=== PATIENT | female | born 1975 | race African-American/Black ===

== ENCOUNTER 2016-09-13 09:37 | Emergency (ER) | payer MEDICARE, OTHER ==
[2016-09-13] MEDS ORDERED: PROPARACAINE 0.5% OPHTH DROPS 15 ML BTL BOTH EYES STA (09:40)
[2016-09-13 09:50] VITALS: TEMP 97.8
--- NOTE | 2016-09-13 10:47 | ED ---
Eye Problem HPI - General Chief complaint: Eye Problems Stated complaint: Can't see Time Seen by Provider: 09/13/16 09:37 Source: patient, EMS Mode of arrival: EMS - History of Present Illness Initial comments: This is a 41-year-old female who states she was looking out a window when she suddenly became aware that she had blurry vision and watering of her eyes and some eye pain and burning. She is not believe she has any new environmental things in her house so she is does states she [place]. She was brought in by EMS due to the sudden onset. She denies any headache fevers chills nausea vomiting sweats or other symptoms no focal deficits was upper or lower extremities. MD chief complaint: eye pain, eye redness, vision change Onset Description: sudden - Related Data Home Medications Medication Instructions Recorded Confirmed Famotidine [Pepcid] 20 mg PO DAILY 03/28/16 09/13/16 Aspirin 650 mg PO Q6H PRN 09/13/16 09/13/16 Fexofenadine HCl 180 mg PO DAILY 09/13/16 09/13/16 Loratadine [Claritin] 10 mg PO DAILY 09/13/16 09/13/16 Sertraline [Zoloft] 100 mg PO DAILY 09/13/16 09/13/16 Previous Rx's Medication Instructions Recorded Divalproex ER [Depakote ER] 1,000 mg PO HS #60 tab 12/18/13 Allergies Allergy/AdvReac Type Severity Reaction Status Date / Time corn Allergy Unknown Verified 09/13/16 10:05 hydromorphone HCl Allergy Unknown Verified 09/13/16 10:05 [From Dilaudid] milk Allergy Unknown Verified 09/13/16 10:05 Penicillins Allergy Rash/Hives Verified 09/13/16 10:05 wheat Allergy Unknown Verified 09/13/16 10:05 Review of Systems ROS Statement: Those systems with pertinent positive or pertinent negative responses have been documented in the HPI. ROS Other: All systems not noted in ROS Statement are negative. Past Medical History Past Medical History: Seizure Disorder Additional Past Medical History / Comment(s): Body tremors History of Any Multi-Drug Resistant Organisms: MRSA Date of last positivie culture/infection: 02/24/2014 MDRO Source:: abdomen Past Surgical History: Tonsillectomy Additional Past Surgical History / Comment(s): Foot surgery, carpel tunnel, wound debridement Past Psychological History: Anxiety, Bipolar Smoking Status: Former smoker Past Alcohol Use History: None Reported Past Drug Use History: None Reported General Exam - General Exam Comments Initial Comments: This is a well-developed well-nourished awake alert oriented history female she is very anxious she does demonstrate watering of her eyes. General appearance: alert, anxious, in distress Head exam: Present: atraumatic, normocephalic, normal inspection Eye exam: Present: PERRL, EOMI, conjunctival injection. Absent: scleral icterus , nystagmus, periorbital swelling, periorbital tenderness ENT exam: Present: normal exam, mucous membranes moist Neck exam: Present: normal inspection. Absent: tenderness, meningismus, lymphadenopathy Respiratory exam: Present: normal lung sounds bilaterally. Absent: respiratory distress, wheezes, rales, rhonchi, stridor Cardiovascular Exam: Present: regular rate, normal rhythm, normal heart sounds. Absent: systolic murmur, diastolic murmur, rubs, gallop, clicks Neurological exam: Present: alert, oriented X3, CN II-XII intact. Absent: motor sensory deficit Psychiatric exam: Present: anxious Skin exam: Present: warm, dry, intact, normal color. Absent: rash Course Vital Signs 09/13/16 09/13/16 09:42 11:20 Temperature 97.8 F Pulse Rate 83 68 Respiratory 14 16 Rate Blood Pressure 169/80 143/84 O2 Sat by Pulse 100 96 Oximetry - Reevaluation(s) Reevaluation #1: 09/13/16 12:50 Patient is started get relief after the Pred Forte was instilled. She did have tonometry done at the right eye was 17 left eye was 19. Reevaluation #2: 09/13/16 12:50 Reevaluation revealed continuation of clear corneas no cloudiness of the glans she still has some light sensitivity. He presentation appears be consistent with iritis Procedures - Procedures Initial comment: I did anesthetize he has using proparacaine drops and did instill fluorescein. Examinationreveals no increased uptake except for perhaps some around the conjunctiva. Eversion of the eyelid showed no evidence of any foreign body no evidence of any abrasions or foreign bodies. Medical Decision Making - Medical Decision Making I did discuss the findings with the patient the presentation is most consistent at this time with iritis. Patient has no visual field defects just blurry vision from the tearing. Bright light does still cause some problem. She does states she had a problem with this in the past. She'll be placed on Pred Forte today and home atropine drops. She was to be referred to Dr. Blankenship but is similar to go to her own fueler. She is encouraged to follow-up today. She is return if any problems. Disposition Clinical Impression: Iritis of both eyes Disposition: HOME SELF-CARE Condition: Good Instructions: Iritis (ED) Additional Instructions: Use the Pred Forte 1 drop 4 times a day 3-5 days and using home atropine 5% drops 1 drop 4 times a day 3-5 days Referrals: Chacorta Summers MD [Primary Care Provider] - 1-2 days Papa Guerrero MD [STAFF PHYSICIAN] - 1-2 days
[2016-09-13 11:21] VITALS: RESP 16
[2016-09-13] MEDS ORDERED: prednisoLONE ACETATE 1% OPHTH DROPS 1 ML BTL BOTH EYES STA (11:57)
[2016-09-13] MEDS ORDERED: KETOROLAC 0.5% OPHTH DROPS 3 ML BTL BOTH EYES SCH (13:00)
[2016-09-13 13:16] VITALS: BP 140/81; PULSE 87
== END 2016-09-13 13:15 | disposition home or self-care (01) ==
LOC: EC 09:37
DX: H20.9 Unspecified iridocyclitis (principal); F41.9 Anxiety disorder, unspecified; Z79.82 Long term (current) use of aspirin; Z79.899 Other long term (current) drug therapy; Z91.011 Allergy to milk products; Z88.0 Allergy status to penicillin; Z91.018 Allergy to other foods; Z88.5 Allergy status to narcotic agent; Z87.891 Personal history of nicotine dependence
CPT/HCPCS: 99283

== ENCOUNTER 2017-03-17 17:53 | Emergency (ER) | payer MEDICARE, OTHER ==
[2017-03-17 18:02] VITALS: BP 128/90; PULSE 100; RESP 18; TEMP 99.6
--- NOTE | 2017-03-17 18:25 | ED ---
Extremity Problem HPI - General Chief complaint: Extremity Problem,Nontraumatic Stated complaint: loss of feeling in left arm Time Seen by Provider: 03/17/17 18:05 Source: patient Mode of arrival: ambulatory Limitations: no limitations - History of Present Illness Initial comments: 41-year-old female patient presents to emergency department today for complaints of left arm pain and paresthesia. Patient states that this started yesterday when her hand cramped area patient states that the pain is mostly in her palm, but also does radiate from her elbow down to her third and fourth fingers. 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 Patient states that she frequently uses her hands in her work. Patient has diagnosed with carpal tunnel in the past, and states that this feels similar. Patient states that she is unable to grasp things with the hand, bend her wrist, or straighten her arm due to the pain. Patient denies any injury to the extremity. Patient denies any headache, dizziness, weakness, chest pain, redness of breath. She she did try to take some Excedrin without relief. Patient also tried ice which did not help either. - Related Data Home Medications Medication Instructions Recorded Confirmed Famotidine [Pepcid] 20 mg PO DAILY 03/28/16 09/13/16 Aspirin 650 mg PO Q6H PRN 09/13/16 09/13/16 Fexofenadine HCl 180 mg PO DAILY 09/13/16 09/13/16 Loratadine [Claritin] 10 mg PO DAILY 09/13/16 09/13/16 Sertraline [Zoloft] 100 mg PO DAILY 09/13/16 09/13/16 Previous Rx's Medication Instructions Recorded Divalproex ER [Depakote ER] 1,000 mg PO HS #60 tab 12/18/13 Ibuprofen [Motrin] 600 mg PO Q6HR PRN #20 tab 03/17/17 Allergies Allergy/AdvReac Type Severity Reaction Status Date / Time corn Allergy Unknown Verified 03/17/17 18:19 hydromorphone HCl Allergy Unknown Verified 03/17/17 18:19 [From Dilaudid] milk Allergy Unknown Verified 03/17/17 18:19 Penicillins Allergy Rash/Hives Verified 03/17/17 18:19 wheat Allergy Unknown Verified 03/17/17 18:19 Review of Systems ROS Statement: Those systems with pertinent positive or pertinent negative responses have been documented in the HPI. ROS Other: All systems not noted in ROS Statement are negative. Past Medical History Past Medical History: Seizure Disorder Additional Past Medical History / Comment(s): Body tremors History of Any Multi-Drug Resistant Organisms: MRSA Date of last positivie culture/infection: 02/24/2014 MDRO Source:: abdomen Past Surgical History: Tonsillectomy Additional Past Surgical History / Comment(s): Foot surgery, carpel tunnel, wound debridement Past Psychological History: Anxiety, Bipolar Smoking Status: Current some day smoker Past Alcohol Use History: None Reported Past Drug Use History: None Reported General Exam Limitations: no limitations General appearance: alert, in no apparent distress Eye exam: Present: normal appearance, PERRL, EOMI. Absent: scleral icterus, conjunctival injection, periorbital swelling ENT exam: Present: normal exam, mucous membranes moist Neck exam: Present: normal inspection. Absent: tenderness, meningismus, lymphadenopathy Respiratory exam: Present: normal lung sounds bilaterally. Absent: respiratory distress, wheezes, rales, rhonchi, stridor Cardiovascular Exam: Present: regular rate, normal rhythm, normal heart sounds. Absent: systolic murmur, diastolic murmur, rubs, gallop, clicks Extremities exam: Present: normal inspection, full ROM, tenderness (To the palmar aspect of the left hand), other (Mild swelling noted to the palmar aspect of the left hand) Neurological exam: Present: alert, oriented X3, CN II-XII intact Psychiatric exam: Present: normal affect, normal mood Skin exam: Present: warm, dry, intact, normal color. Absent: rash Course Vital Signs 03/17/17 17:58 Temperature 99.6 F Pulse Rate 100 Respiratory 18 Rate Blood Pressure 128/90 O2 Sat by Pulse 97 Oximetry Medical Decision Making - Medical Decision Making Detail cannot patient presented to emergency department today for evaluation of pain and paresthesia to the left hand and wrist. The stent with carpal tunnel which patient has been diagnosed within the past. Given that there was no injury to the extremity and patient has had similar symptoms in the past with the carpal tunnel she will be discharged home with a prescription for anti- inflammatory ibuprofen as well as a cock-up splint prescription. Patient has been instructed to follow up with orthopedics for reevaluation of the wrist. Also instructed to follow-up with her primary care physician if she can get into orthopedics right away. Patient instructed to return for any new, worsening, or concerning symptoms. Patient verbalizes understanding and agrees with this plan. Disposition Clinical Impression: Arm pain, Carpal tunnel syndrome of left wrist Disposition: HOME SELF-CARE Condition: Good Instructions: Paresthesia (ED), Arthralgia (ED) Additional Instructions: Use Motrin for pain and inflammation. Use Js wrap until you can get a brace. Follow-up with orthopedic surgeon for recheck. Follow-up with primary care physician one to 2 days for recheck. Return for any new, worsening, or concerning symptoms. Prescriptions: Ibuprofen [Motrin] 600 mg PO Q6HR PRN #20 tab PRN Reason: Pain Referrals: Chacorta Summers MD [Primary Care Provider] - 1-2 days Hector Miller PAC [PHYSICIAN INGREDIENT HANDLER] - 1-2 days Time of Disposition: 18:24
== END 2017-03-17 18:39 | disposition home or self-care (01) ==
LOC: EC 17:53
DX: G56.02 Carpal tunnel syndrome, left upper limb (principal); F31.9 Bipolar disorder, unspecified; F41.9 Anxiety disorder, unspecified; F17.200 Nicotine dependence, unspecified, uncomplicated; Z88.0 Allergy status to penicillin; Z88.5 Allergy status to narcotic agent; Z91.011 Allergy to milk products; Z91.018 Allergy to other foods; Z79.899 Other long term (current) drug therapy
CPT/HCPCS: 29125; 99283

== ENCOUNTER 2017-10-13 06:28 | Emergency (ER) | payer MEDICARE, OTHER ==
[2017-10-13 06:42] VITALS: RESP 18
[2017-10-13] MEDS ORDERED: MECLIZINE 12.5 MG TAB PO STA (07:44)
[2017-10-13] MEDS ORDERED: SODIUM CHLORIDE 0.9% 1,000 ML IV STA ×2 (07:44)
[2017-10-13] MEDS ORDERED: ONDANSETRON 4 MG/2 ML VIAL IVP STA (07:44)
--- NOTE | 2017-10-13 07:48 | ED ---
General Adult HPI - General Chief complaint: Nausea/Vomiting/Diarrhea Stated complaint: Nausea Time Seen by Provider: 10/13/17 07:22 Source: patient, RN notes reviewed Mode of arrival: wheelchair Limitations: no limitations - History of Present Illness Initial comments: This is a 42-year-old female who presents with complaints of the onset of some nausea and generalized wooziness and dizziness after eating. He last evening. She states she has not vomited but feels she would feel better if she did. She complains of dizziness distress with certain movements of her eyes and he had she does have a history of vertigo in the past she also states her legs are tingling she also has multiple other complaints of left leg popping feeling in her and her eyes. She denies any focal weakness to her upper or lower extremities. She does have nausea no vomiting no abdominal pain no overt chest pain. No palpitations. - Related Data Home Medications Medication Instructions Recorded Confirmed Sertraline [Zoloft] 100 mg PO DAILY 09/13/16 06/15/17 lamoTRIgine [LaMICtal] 25 mg PO DAILY 03/17/17 06/15/17 Allergies Allergy/AdvReac Type Severity Reaction Status Date / Time corn Allergy Unknown Verified 10/13/17 06:42 hydromorphone HCl Allergy Unknown Verified 10/13/17 06:42 [From Dilaudid] milk Allergy Unknown Verified 10/13/17 06:42 Penicillins Allergy Rash/Hives Verified 10/13/17 06:42 wheat Allergy Unknown Verified 10/13/17 06:42 Review of Systems ROS Statement: Those systems with pertinent positive or pertinent negative responses have been documented in the HPI. ROS Other: All systems not noted in ROS Statement are negative. Past Medical History Past Medical History: Seizure Disorder Additional Past Medical History / Comment(s): Body tremors, hypogylcemia, History of Any Multi-Drug Resistant Organisms: MRSA Date of last positivie culture/infection: 02/24/2014 MDRO Source:: abdomen Past Surgical History: Tonsillectomy Additional Past Surgical History / Comment(s): Foot surgery, carpel tunnel, wound debridement, Past Psychological History: Anxiety, Bipolar Smoking Status: Current some day smoker Past Alcohol Use History: None Reported Past Drug Use History: None Reported General Exam - General Exam Comments Initial Comments: This is a well-developed well-nourished awake alert oriented 3 female Limitations: no limitations General appearance: alert, anxious Head exam: Present: atraumatic, normocephalic, normal inspection Eye exam: Present: normal appearance, PERRL, EOMI. Absent: scleral icterus, conjunctival injection, periorbital swelling ENT exam: Present: mucous membranes dry Neck exam: Present: normal inspection, full ROM. Absent: tenderness, meningismus, lymphadenopathy Respiratory exam: Present: normal lung sounds bilaterally. Absent: respiratory distress, wheezes, rales, rhonchi, stridor, chest wall tenderness Cardiovascular Exam: Present: regular rate, normal rhythm, normal heart sounds. Absent: systolic murmur, diastolic murmur, rubs, gallop, clicks GI/Abdominal exam: Present: soft, normal bowel sounds. Absent: distended, tenderness, guarding, rebound, rigid Extremities exam: Present: normal inspection, full ROM, normal capillary refill. Absent: tenderness, pedal edema, joint swelling, calf tenderness Back exam: Present: normal inspection Neurological exam: Present: alert, oriented X3, CN II-XII intact Psychiatric exam: Present: normal affect, normal mood Skin exam: Present: warm, dry, intact, normal color. Absent: rash Course Vital Signs 10/13/17 06:38 Temperature 97.4 F L Pulse Rate 74 Respiratory 18 Rate Blood Pressure 122/77 O2 Sat by Pulse 99 Oximetry Medical Decision Making - Medical Decision Making The patient is feeling much improved this time she will be discharged the presentation is consistent with a acute gastritis likely secondary to the medial sheet discussed ingesting. - Lab Data Result diagrams: 10/13/17 08:05 10/13/17 08:05 Lab Results 10/13/17 10/13/17 10/13/17 Range/Units 08:05 08:05 08:05 WBC 9.1 (3.8-10.6) k/uL RBC 4.43 (3.80-5.40) m/uL Hgb 13.6 (11.4-16.0) gm/dL Hct 43.8 (34.0-46.0) % MCV 98.8 (80.0-100.0) fL MCH 30.8 (25.0-35.0) pg MCHC 31.2 (31.0-37.0) g/dL RDW 13.3 (11.5-15.5) % Plt Count 440 (150-450) k/uL Neutrophils % 58 % Lymphocytes % 28 % Monocytes % 4 % Eosinophils % 6 % Basophils % 1 % Neutrophils # 5.3 (1.3-7.7) k/uL Lymphocytes # 2.5 (1.0-4.8) k/uL Monocytes # 0.4 (0-1.0) k/uL Eosinophils # 0.6 (0-0.7) k/uL Basophils # 0.1 (0-0.2) k/uL Sodium 142 (137-145) mmol/L Potassium 4.1 (3.5-5.1) mmol/L Chloride 104 (98-107) mmol/L Carbon Dioxide 26 (22-30) mmol/L Anion Gap 12 mmol/L BUN 11 (7-17) mg/dL Creatinine 0.85 (0.52-1.04) mg/dL Est GFR (MDRD) Af Amer >60 (>60 ml/min/1.73 sqM) Est GFR (MDRD) Non-Af >60 (>60 ml/min/1.73 sqM) Glucose 90 (74-99) mg/dL Calcium 9.3 (8.4-10.2) mg/dL Magnesium 2.1 (1.6-2.3) mg/dL Total Bilirubin 0.3 (0.2-1.3) mg/dL AST 15 (14-36) U/L ALT 15 (9-52) U/L Alkaline Phosphatase 99 (38-126) U/L Total Creatine Kinase 52 (30-135) U/L CK-MB (CK-2) <0.2 (0.0-2.4) ng/mL CK-MB (CK-2) Rel Index Troponin I <0.012 (0.000-0.034) ng/mL Total Protein 7.8 (6.3-8.2) g/dL Albumin 3.9 (3.5-5.0) g/dL Amylase 58 (30-110) U/L Lipase 64 (23-300) U/L TSH 4.280 (0.465-4.680) mIU/L - Radiology Data Radiology results: report reviewed (Imaging was reviewed no acute findings patient does demonstrate scoliosis.), image reviewed Disposition Clinical Impression: Food poisoning, Acute gastritis Disposition: HOME SELF-CARE Condition: Good Instructions: Gastritis (ED), Food Poisoning (ED) Referrals: Chacorta Summers MD [Primary Care Provider] - 1-2 days
[2017-10-13] MEDS ORDERED: MECLIZINE 25 MG TAB PO STA (07:53)
[2017-10-13 08:18] LABS: Basophils # (A) 0.1 k/uL (0-0.2); Basophils % (A) 1 %; Eosinophils # (A) 0.6 k/uL (0-0.7); Eosinophils % (A) 6 %; HCT 43.8 % (34.0-46.0); HGB 13.6 gm/dL (11.4-16.0); Lymphocytes # (A) 2.5 k/uL (1.0-4.8); Lymphocytes % (A) 28 %; MCH 30.8 pg (25.0-35.0); MCHC 31.2 g/dL (31.0-37.0); MCV 98.8 fL (80.0-100.0); Mean Platelet Volume 6.6; Monocytes # (A) 0.4 k/uL (0-1.0); Monocytes % (A) 4 %; Neutrophils # (A) 5.3 k/uL (1.3-7.7); Neutrophils % (A) 58 %; Platelet Count 440 k/uL (150-450); RBC 4.43 m/uL (3.80-5.40); RDW 13.3 % (11.5-15.5); WBC 9.1 k/uL (3.8-10.6)
--- NOTE | 2017-10-13 08:22 | XR ---
EXAMINATION TYPE: XR chest 2V DATE OF EXAM: 10/13/2017 HISTORY: cough. REFERENCE: Previous study dated 02/10/2012. FINDINGS: The lungs are clear. Pleural space are clear. The heart is not enlarged. There is an S-shaped scoliosis convex to the right in the thoracic region and to the left in the lumb ar region. IMPRESSION: NO ACUTE INTRATHORACIC ABNORMALITY.
[2017-10-13 08:36] LABS: ALT 15 U/L (9-52); AST 15 U/L (14-36); Albumin 3.9 g/dL (3.5-5.0); Alkaline Phosphatase 99 U/L (38-126); Amylase 58 U/L (30-110); Anion Gap 12 mmol/L; Blood Urea Nitrogen 11 mg/dL (7-17); Calcium 9.3 mg/dL (8.4-10.2); Carbon Dioxide 26 mmol/L (22-30); Chloride 104 mmol/L (98-107); Glucose 90 mg/dL (74-99); Lipase 64 U/L (23-300); Magnesium 2.1 mg/dL (1.6-2.3); Potassium 4.1 mmol/L (3.5-5.1); Sodium 142 mmol/L (137-145); Total Bilirubin 0.3 mg/dL (0.2-1.3); Total Protein 7.8 g/dL (6.3-8.2)
[2017-10-13 08:49] LABS: Creatine Kinase 52 U/L (30-135)
[2017-10-13 09:02] LABS: Creatine Kinase MB <0.2 ng/mL (0.0-2.4); Troponin I <0.012 ng/mL (0.000-0.034)
[2017-10-13 09:52] VITALS: BP 122/72; PULSE 68; TEMP 98.2
== END 2017-10-13 10:02 | disposition home or self-care (01) ==
LOC: EC 06:28
DX: K29.00 Acute gastritis without bleeding (principal); T62.91XA Toxic effect of unspecified noxious substance eaten as food, accidental (unintentional), initial encounter; G40.909 Epilepsy, unspecified, not intractable, without status epilepticus; F41.9 Anxiety disorder, unspecified; F31.9 Bipolar disorder, unspecified; F17.200 Nicotine dependence, unspecified, uncomplicated; Z88.0 Allergy status to penicillin; Z88.5 Allergy status to narcotic agent; Z91.011 Allergy to milk products; Z91.018 Allergy to other foods; Z79.899 Other long term (current) drug therapy; Z86.14 Personal history of Methicillin resistant Staphylococcus aureus infection
CPT/HCPCS: 99284; 96374; 96361 ×2; 36415; 80053; 84443; 82150; 82550; 82553; 83690; 83735; 84484; 85025; 71046; J2405

== ENCOUNTER 2018-03-19 12:54 | Emergency (ER) | payer MEDICARE, OTHER ==
[2018-03-19 13:14] VITALS: BP 112/74; PULSE 86; RESP 18; TEMP 98.2
--- NOTE | 2018-03-19 13:35 | ED ---
Skin/Abscess/FB HPI - General Chief complaint: Skin/Abscess/Foreign Body Stated complaint: swollen bug bites Time Seen by Provider: 03/19/18 13:17 Source: patient, RN notes reviewed Mode of arrival: ambulatory Limitations: no limitations - History of Present Illness Initial comments: This is a 42-year-old female who presents to the emergency department with chief complaint of right. Patient states that she was outside yesterday and was bit by little black bugs. She states she believes they were mosquitoes. She states that she has been scratching at the bug bites and when she woke up this morning she noticed that they were larger than yesterday. She states that she did try to apply hydrocortisone cream but it causes a burning sensation. Patient states that she was bit on the left forearm and her legs. Patient denies recent fevers or chills, chest pain or shortness of breath, abdominal pain, nausea or vomiting. States that the bug bites are extremely pruritic. - Related Data Home Medications Medication Instructions Recorded Confirmed Sertraline [Zoloft] 100 mg PO DAILY 09/13/16 06/15/17 lamoTRIgine [LaMICtal] 25 mg PO DAILY 03/17/17 06/15/17 Previous Rx's Medication Instructions Recorded Hydrocortisone Cream 1 applic TOPICAL TID #1 tube 03/19/18 [Hydrocortisone 2.5% Cream] diphenhydrAMINE HCL [Benadryl] 25 mg PO BID #8 tab 03/19/18 Allergies Allergy/AdvReac Type Severity Reaction Status Date / Time corn Allergy Unknown Verified 03/19/18 13:14 hydromorphone HCl Allergy Unknown Verified 03/19/18 13:14 [From Dilaudid] milk Allergy Unknown Verified 03/19/18 13:14 Penicillins Allergy Rash/Hives Verified 03/19/18 13:14 wheat Allergy Unknown Verified 03/19/18 13:14 Review of Systems ROS Statement: Those systems with pertinent positive or pertinent negative responses have been documented in the HPI. ROS Other: All systems not noted in ROS Statement are negative. Past Medical History Past Medical History: Seizure Disorder Additional Past Medical History / Comment(s): Body tremors, hypogylcemia, History of Any Multi-Drug Resistant Organisms: MRSA Date of last positivie culture/infection: 02/24/2014 MDRO Source:: abdomen Past Surgical History: Tonsillectomy Additional Past Surgical History / Comment(s): Foot surgery, carpel tunnel, wound debridement, Past Psychological History: Anxiety, PTSD Smoking Status: Current some day smoker Past Alcohol Use History: None Reported Past Drug Use History: None Reported General Exam - General Exam Comments Initial Comments: General: Awake and alert, well-developed; in no apparent distress. HEENT: Head atraumatic, normocephalic. Pupils are equal, round and reactive to light. Extraocular movements intact. Oropharynx moist without erythema or exudate. Neck: Supple. Normal ROM. Cardiovascular: Regular rate and rhythm. No murmurs, rubs or gallops. Chest symmetrical. Radial pulses are 2+ equal and palpable bilaterally. Respiratory: Lungs clear to auscultation bilaterally. No wheezes, rales or rhonchi. Normal respiratory effort with no use of accessory muscles. Musculoskeletal: Normal ROM, no tenderness bilateral upper and lower extremities. Ambulating normally. Skin: Circular area of swelling and redness right dorsal forearm consistent with a bug bite. No warmth or tenderness. Sensation is intact. Overlying excoriations noted. Neurological: Alert and oriented x3. CN II-XII grossly intact. Speech is fluent and answers are appropriate. No focal neuro deficits. Psychiatric: Normal mood and affect. No overt signs of depression or anxiety noted. Limitations: no limitations Course Vital Signs 03/19/18 13:11 Temperature 98.2 F Pulse Rate 86 Respiratory 18 Rate Blood Pressure 112/74 O2 Sat by Pulse 100 Oximetry Medical Decision Making - Medical Decision Making This is a 42-year-old female who presents to the emergency department with chief complaint of bug bites. Patient reports extremely pruritic bug bites on her arms and legs since yesterday. She states that she has been scratching at the bug bites and that they have become swollen. On physical examination, there is a circular area of erythema and soft tissue swelling consistent with an insect bite on dorsal left forearm. Overlying expiration noted. Recommended topical steroids and Benadryl as well as cool compresses. Recommended abstaining from scratching. Vital signs are stable and patient is in no acute distress. She will be discharged home at this time. All questions answered. Disposition Clinical Impression: Insect bites Disposition: HOME SELF-CARE Condition: Good Instructions: Insect Bite or Sting (ED) Additional Instructions: Please take medications as prescribed. Please follow up with primary care provider within 1-2 days. Return to emergency department if symptoms should worsen or any concerns arise. Prescriptions: diphenhydrAMINE HCL [Benadryl] 25 mg PO BID #8 tab Hydrocortisone Cream [Hydrocortisone 2.5% Cream] 1 applic TOPICAL TID #1 tube Is patient prescribed a controlled substance at d/c from ED?: No Referrals: Tarun Garcia MD [Primary Care Provider] - 1-2 days Time of Disposition: 13:35
== END 2018-03-19 13:47 | disposition home or self-care (01) ==
LOC: EC 12:54
DX: S50.862A Insect bite (nonvenomous) of left forearm, initial encounter (principal); S50.861A Insect bite (nonvenomous) of right forearm, initial encounter; S80.862A Insect bite (nonvenomous), left lower leg, initial encounter; S80.861A Insect bite (nonvenomous), right lower leg, initial encounter; G40.909 Epilepsy, unspecified, not intractable, without status epilepticus; F41.9 Anxiety disorder, unspecified; F43.10 Post-traumatic stress disorder, unspecified; F17.200 Nicotine dependence, unspecified, uncomplicated; Z86.14 Personal history of Methicillin resistant Staphylococcus aureus infection; Z79.899 Other long term (current) drug therapy; Z88.0 Allergy status to penicillin; Z91.018 Allergy to other foods; Z88.5 Allergy status to narcotic agent; Z91.011 Allergy to milk products; W57.XXXA Bitten or stung by nonvenomous insect and other nonvenomous arthropods, initial encounter
CPT/HCPCS: 99283

== ENCOUNTER → 2019-01-08 | Outpatient (CLI) | payer MEDICARE, OTHER ==
--- NOTE | 2019-01-08 11:50 | XR ---
Left foot HISTORY: Trauma and pain 3 views of the left foot Bone mineralization, joint spaces and alignment are maintained. There is a plantar spur present. Dege nerative changes present at the metatarsophalangeal joint of the first digit. IMPRESSION: No fracture or dislocation.
== END | disposition home or self-care (01) ==
LOC: RADXRMAIN 11:32
PROVIDERS: ATTEND Physical Medicine & Rehabilitation
DX: M79.672 Pain in left foot (principal)

== ENCOUNTER → 2019-02-06 | Outpatient (CLI) | payer MEDICARE, OTHER ==
--- NOTE | 2019-02-06 15:05 | XR ---
EXAMINATION TYPE: XR foot complete LT DATE OF EXAM: 02/06/2019 COMPARISON: 01/08/2019 HISTORY: 43-year-old female pain with walking after injury. M79.672,M79.675,S99.922D, S90.32XA TECHNIQUE: 3 views FINDINGS: Moderate degenerative change at the first MTP joint with marginal spurring and joint space narrowing. No acute fracture, subluxation, dislocation. Small plantar calcaneal spur. IMPRESSION: Moderate first MTP joint OA. No acute osseous abnormality seen.
== END | disposition home or self-care (01) ==
LOC: RADXRMAIN 13:55
PROVIDERS: ATTEND Family Medicine
DX: S99.922D Unspecified injury of left foot, subsequent encounter (principal); S90.32XD Contusion of left foot, subsequent encounter; M19.072 Primary osteoarthritis, left ankle and foot

== ENCOUNTER 2019-10-01 17:36 | Emergency (ER) | payer MEDICARE, OTHER ==
[2019-10-01 18:09] VITALS: RESP 16; TEMP 98.3
[2019-10-01] MEDS ORDERED: SODIUM CHLORIDE 0.9% 1,000 ML IV STA (18:37)
--- NOTE | 2019-10-01 18:42 | ED ---
General Adult HPI - General Chief complaint: Syncope Stated complaint: seizure Time Seen by Provider: 10/01/19 18:20 Source: EMS Mode of arrival: EMS Limitations: no limitations - History of Present Illness Initial comments: Patient is a 44-year-old female presenting to the emergency department after she had a feeling that she might pass out so she sat down on the bus and then had him lay down. Patient states she did not lose consciousness. She did not hit her head. Patient states she felt like all of her limbs were going numb. Patient states she is supposed to see a neurologist for her chronic symptoms but has not yet. Patient denies any pain today. She states she still feels lightheaded and has also had 2-3 vomiting episodes today. She states she does not feel nauseous right now. She denies chest pain, shortness of breath, abdominal pain, diarrhea. She has no other complaints at this time. Upon arrival to the ER her vitals are normal. - Related Data Home Medications Medication Instructions Recorded Confirmed Sertraline [Zoloft] 100 mg PO DAILY 09/13/16 06/15/17 lamoTRIgine [LaMICtal] 25 mg PO DAILY 03/17/17 06/15/17 Previous Rx's Medication Instructions Recorded Hydrocortisone Cream 1 applic TOPICAL TID #1 tube 03/19/18 [Hydrocortisone 2.5% Cream] diphenhydrAMINE HCL [Benadryl] 25 mg PO BID #8 tab 03/19/18 Allergies Allergy/AdvReac Type Severity Reaction Status Date / Time corn Allergy Unknown Verified 10/01/19 18:09 hydromorphone HCl Allergy Unknown Verified 10/01/19 18:09 [From Dilaudid] milk Allergy Unknown Verified 10/01/19 18:09 Penicillins Allergy Rash/Hives Verified 10/01/19 18:09 wheat Allergy Unknown Verified 10/01/19 18:09 Review of Systems ROS Statement: Those systems with pertinent positive or pertinent negative responses have been documented in the HPI. ROS Other: All systems not noted in ROS Statement are negative. Past Medical History Past Medical History: Seizure Disorder Additional Past Medical History / Comment(s): Body tremors, hypogylcemia, History of Any Multi-Drug Resistant Organisms: MRSA Date of last positivie culture/infection: 02/24/2014 MDRO Source:: abdomen Past Surgical History: Tonsillectomy Additional Past Surgical History / Comment(s): Foot surgery, carpel tunnel, wound debridement, Past Psychological History: Anxiety, PTSD Smoking Status: Current some day smoker Past Alcohol Use History: None Reported Past Drug Use History: None Reported General Exam - General Exam Comments Initial Comments: GENERAL: Well-appearing, well-nourished and in no acute distress. HEAD: Atraumatic, normocephalic. EYES: Pupils equal round and reactive to light, extraocular movements intact, sclera anicteric, conjunctiva are normal. ENT: TMs normal, nares patent, oropharynx clear without exudates. Moist mucous membranes. NECK: Normal range of motion, supple without lymphadenopathy or JVD. LUNGS: Breath sounds clear to auscultation bilaterally and equal. No wheezes rales or rhonchi. HEART: Regular rate and rhythm without murmurs, rubs or gallops. ABDOMEN: Soft, nontender, normoactive bowel sounds. No guarding, no rebound. No masses appreciated. : Deferred EXTREMITIES: Normal range of motion, no pitting or edema. No clubbing or cyanosis. NEUROLOGICAL: Cranial nerves II through XII grossly intact. Normal speech, normal gait. PSYCH: Normal mood, normal affect. SKIN: Warm, Dry, normal turgor, no rashes or lesions noted. Limitations: no limitations Course Vital Signs 10/01/19 10/01/19 10/01/19 18:00 18:07 18:30 Temperature 98.3 F Pulse Rate 72 75 Respiratory 16 18 Rate Blood Pressure 97/74 108/73 97/74 O2 Sat by Pulse 96 98 97 Oximetry 10/01/19 10/01/19 19:00 20:46 Temperature Pulse Rate 80 80 Respiratory 16 16 Rate Blood Pressure 97/65 106/83 O2 Sat by Pulse 99 99 Oximetry EKG Findings - EKG Comments: EKG Findings:: Jugular rate 69, ID interval 158, QTC 422. Normal sinus rhythm. ST elevation in leads 2 and V5, most likely due to early repolarization. No other acute abnormalities. Medical Decision Making - Medical Decision Making Patient is a 44-year-old female here for lightheadedness episode that happened today. Her vitals are stable here. EKG is okay, troponin normal lab work shows slight leukocytosis at 14.5. Glucose is normal. Urine is no signs of infection. She is not . Patient is not febrile. Her exam is unremarkable. I discussed these findings with the patient. I recommended a second troponin and added a urine drug screen which is pending at this time. Patient states she does not wish to wait for these lab results. She needs to catch the bus. Discussed the importance of these labs. Patient's second troponin was normal. Her vital signs remained stable. She is stable for d ischarge at this time and she is to return with this plan of care. She will follow-up with her PCP as well as neurology as she previously indicated. Return parameters were discussed with the patient and she verbalized understanding. Case discussed with Dr. Emanuel. - Lab Data Result diagrams: 10/01/19 18:00 10/01/19 18:00 Lab Results 10/01/19 10/01/19 10/01/19 Range/Units 18:00 18:00 18:00 WBC 14.5 H (3.8-10.6) k/uL RBC 4.66 (3.80-5.40) m/uL Hgb 14.8 (11.4-16.0) gm/dL Hct 45.4 (34.0-46.0) % MCV 97.5 (80.0-100.0) fL MCH 31.8 (25.0-35.0) pg MCHC 32.6 (31.0-37.0) g/dL RDW 13.2 (11.5-15.5) % Plt Count 409 (150-450) k/uL Neutrophils % 81 % Lymphocytes % 11 % Monocytes % 4 % Eosinophils % 1 % Basophils % 1 % Neutrophils # 11.8 H (1.3-7.7) k/uL Lymphocytes # 1.6 (1.0-4.8) k/uL Monocytes # 0.6 (0-1.0) k/uL Eosinophils # 0.2 (0-0.7) k/uL Basophils # 0.2 (0-0.2) k/uL PT 11.3 (9.0-12.0) sec INR 1.1 (<1.2) APTT 22.6 (22.0-30.0) sec Sodium 134 L (137-145) mmol/L Potassium 3.9 (3.5-5.1) mmol/L Chloride 104 (98-107) mmol/L Carbon Dioxide 24 (22-30) mmol/L Anion Gap 6 mmol/L BUN 15 (7-17) mg/dL Creatinine 1.02 (0.52-1.04) mg/dL Est GFR (CKD-EPI)AfAm 77 (>60 ml/min/1.73 sqM) Est GFR (CKD-EPI)NonAf 67 (>60 ml/min/1.73 sqM) Glucose 107 H (74-99) mg/dL Calcium 8.5 (8.4-10.2) mg/dL Total Bilirubin 0.6 (0.2-1.3) mg/dL AST 20 (14-36) U/L ALT 11 (4-34) U/L Alkaline Phosphatase 73 (38-126) U/L Troponin I (0.000-0.034) ng/mL Total Protein 6.2 L (6.3-8.2) g/dL Albumin 3.3 L (3.5-5.0) g/dL Urine Color Urine Appearance (Clear) Urine pH (5.0-8.0) Ur Specific [place] (1.001-1.035) Urine Protein (Negative) Urine Glucose (UA) (Negative) Urine Ketones (Negative) Urine Blood (Negative) Urine Nitrite (Negative) Urine Bilirubin (Negative) Urine Urobilinogen (<2.0) mg/dL Ur Leukocyte Esterase (Negative) Urine RBC (0-5) /hpf Urine WBC (0-5) /hpf Ur Squamous Epith Cells (0-4) /hpf Urine Bacteria (None) /hpf Hyaline Casts (0-2) /lpf Urine Mucus (None) /hpf Urine HCG, Qual (Not Detectd) Urine Opiates Screen (NotDetected) Ur Oxycodone Screen (NotDetected) Urine Methadone Screen (NotDetected) Ur Propoxyphene Screen (NotDetected) Ur Barbiturates Screen (NotDetected) U Tricyclic Antidepress (NotDetected) Ur Phencyclidine Scrn (NotDetected) Ur Amphetamines Screen (NotDetected) U Methamphetamines Scrn (NotDetected) U Benzodiazepines Scrn (NotDetected) Urine Cocaine Screen (NotDetected) U Marijuana (THC) Screen (NotDetected) 10/01/19 10/01/19 10/01/19 Range/Units 18:00 19:19 19:19 WBC (3.8-10.6) k/uL RBC (3.80-5.40) m/uL Hgb (11.4-16.0) gm/dL Hct (34.0-46.0) % MCV (80.0-100.0) fL MCH (25.0-35.0) pg MCHC (31.0-37.0) g/dL RDW (11.5-15.5) % Plt Count (150-450) k/uL Neutrophils % % Lymphocytes % % Monocytes % % Eosinophils % % Basophils % % Neutrophils # (1.3-7.7) k/uL Lymphocytes # (1.0-4.8) k/uL Monocytes # (0-1.0) k/uL Eosinophils # (0-0.7) k/uL Basophils # (0-0.2) k/uL PT (9.0-12.0) sec INR (<1.2) APTT (22.0-30.0) sec Sodium (137-145) mmol/L Potassium (3.5-5.1) mmol/L Chloride (98-107) mmol/L Carbon Dioxide (22-30) mmol/L Anion Gap mmol/L BUN (7-17) mg/dL Creatinine (0.52-1.04) mg/dL Est GFR (CKD-EPI)AfAm (>60 ml/min/1.73 sqM) Est GFR (CKD-EPI)NonAf (>60 ml/min/1.73 sqM) Glucose (74-99) mg/dL Calcium (8.4-10.2) mg/dL Total Bilirubin (0.2-1.3) mg/dL AST (14-36) U/L ALT (4-34) U/L Alkaline Phosphatase (38-126) U/L Troponin I <0.012 (0.000-0.034) ng/mL Total Protein (6.3-8.2) g/dL Albumin (3.5-5.0) g/dL Urine Color Yellow Urine Appearance Cloudy H (Clear) Urine pH 6.0 (5.0-8.0) Ur Specific [place] 1.026 (1.001-1.035) Urine Protein 1+ H (Negative) Urine Glucose (UA) Negative (Negative) Urine Ketones 1+ H (Negative) Urine Blood Negative (Negative) Urine Nitrite Negative (Negative) Urine Bilirubin 1+ H (Negative) Urine Urobilinogen 4.0 (<2.0) mg/dL Ur Leukocyte Esterase Small H (Negative) Urine RBC 4 (0-5) /hpf Urine WBC 8 H (0-5) /hpf Ur Squamous Epith Cells 39 H (0-4) /hpf Urine Bacteria Rare H (None) /hpf Hyaline Casts 15 H (0-2) /lpf Urine Mucus Many H (None) /hpf Urine HCG, Qual Not Detected (Not Detectd) Urine Opiates Screen (NotDetected) Ur Oxycodone Screen (NotDetected) Urine Methadone Screen (NotDetected) Ur Propoxyphene Screen (NotDetected) Ur Barbiturates Screen (NotDetected) U Tricyclic Antidepress (NotDetected) Ur Phencyclidine Scrn (NotDetected) Ur Amphetamines Screen (NotDetected) U Methamphetamines Scrn (NotDetected) U Benzodiazepines Scrn (NotDetected) Urine Cocaine Screen (NotDetected) U Marijuana (THC) Screen (NotDetected) 10/01/19 10/01/19 Range/Units 19:19 20:44 WBC (3.8-10.6) k/uL RBC (3.80-5.40) m/uL Hgb (11.4-16.0) gm/dL Hct (34.0-46.0) % MCV (80.0-100.0) fL MCH (25.0-35.0) pg MCHC (31.0-37.0) g/dL RDW (11.5-15.5) % Plt Count (150-450) k/uL Neutrophils % % Lymphocytes % % Monocytes % % Eosinophils % % Basophils % % Neutrophils # (1.3-7.7) k/uL Lymphocytes # (1.0-4.8) k/uL Monocytes # (0-1.0) k/uL Eosinophils # (0-0.7) k/uL Basophils # (0-0.2) k/uL PT (9.0-12.0) sec INR (<1.2) APTT (22.0-30.0) sec Sodium (137-145) mmol/L Potassium (3.5-5.1) mmol/L Chloride (98-107) mmol/L Carbon Dioxide (22-30) mmol/L Anion Gap mmol/L BUN (7-17) mg/dL Creatinine (0.52-1.04) mg/dL Est GFR (CKD-EPI)AfAm (>60 ml/min/1.73 sqM) Est GFR (CKD-EPI)NonAf (>60 ml/min/1.73 sqM) Glucose (74-99) mg/dL Calcium (8.4-10.2) mg/dL Total Bilirubin (0.2-1.3) mg/dL AST (14-36) U/L ALT (4-34) U/L Alkaline Phosphatase (38-126) U/L Troponin I <0.012 (0.000-0.034) ng/mL Total Protein (6.3-8.2) g/dL Albumin (3.5-5.0) g/dL Urine Color Urine Appearance (Clear) Urine pH (5.0-8.0) Ur Specific [place] (1.001-1.035) Urine Protein (Negative) Urine Glucose (UA) (Negative) Urine Ketones (Negative) Urine Blood (Negative) Urine Nitrite (Negative) Urine Bilirubin (Negative) Urine Urobilinogen (<2.0) mg/dL Ur Leukocyte Esterase (Negative) Urine RBC (0-5) /hpf Urine WBC (0-5) /hpf Ur Squamous Epith Cells (0-4) /hpf Urine Bacteria (None) /hpf Hyaline Casts (0-2) /lpf Urine Mucus (None) /hpf Urine HCG, Qual (Not Detectd) Urine Opiates Screen Not Detected (NotDetected) Ur Oxycodone Screen Not Detected (NotDetected) Urine Methadone Screen Not Detected (NotDetected) Ur Propoxyphene Screen Not Detected (NotDetected) Ur Barbiturates Screen Not Detected (NotDetected) U Tricyclic Antidepress Not Detected (NotDetected) Ur Phencyclidine Scrn Not Detected (NotDetected) Ur Amphetamines Screen Not Detected (NotDetected) U Methamphetamines Scrn Not Detected (NotDetected) U Benzodiazepines Scrn Not Detected (NotDetected) Urine Cocaine Screen Not Detected (NotDetected) U Marijuana (THC) Screen Not Detected (NotDetected) Disposition Clinical Impression: Lightheadedness Disposition: HOME SELF-CARE Condition: Stable Instructions (If sedation given, give patient instructions): Lightheadedness (ED) Additional Instructions: Please return to the Emergency Department if symptoms worsen or any other concerns. Follow-up with PCP as well as neurologist as discussed. Is patient prescribed a controlled substance at d/c from ED?: No Referrals: Tarun Garcia MD [Primary Care Provider] - 1-2 days
[2019-10-01 19:04] LABS: Basophils # (A) 0.2 k/uL (0-0.2); Basophils % (A) 1 %; Eosinophils # (A) 0.2 k/uL (0-0.7); Eosinophils % (A) 1 %; HCT 45.4 % (34.0-46.0); HGB 14.8 gm/dL (11.4-16.0); Lymphocytes # (A) 1.6 k/uL (1.0-4.8); Lymphocytes % (A) 11 %; MCH 31.8 pg (25.0-35.0); MCHC 32.6 g/dL (31.0-37.0); MCV 97.5 fL (80.0-100.0); Mean Platelet Volume 7.4; Monocytes # (A) 0.6 k/uL (0-1.0); Monocytes % (A) 4 %; Neutrophils # (A) 11.8 k/uL (1.3-7.7); Neutrophils % (A) 81 %; Platelet Count 409 k/uL (150-450); RBC 4.66 m/uL (3.80-5.40); RDW 13.2 % (11.5-15.5); WBC 14.5 k/uL (3.8-10.6)
[2019-10-01 19:05] VITALS: PULSE 80
[2019-10-01 19:14] LABS: Albumin 3.3 g/dL (3.5-5.0); Calcium 8.5 mg/dL (8.4-10.2); Potassium 3.9 mmol/L (3.5-5.1); Total Bilirubin 0.6 mg/dL (0.2-1.3); Total Protein 6.2 g/dL (6.3-8.2)
[2019-10-01 19:20] LABS: INR 1.1 (<1.2); Partial Thromboplastin Time 22.6 sec (22.0-30.0); Prothrombin Time 11.3 sec (9.0-12.0)
--- NOTE | 2019-10-01 19:27 | XR ---
EXAMINATION TYPE: XR chest 2V DATE OF EXAM: 10/01/2019 COMPARISON: 10/13/2017 INDICATION: Syncope TECHNIQUE: Frontal and lateral views of the chest are obtained. FINDINGS: The heart size is normal. The pulmonary vasculature is normal. The lungs are clear. IMPRESSION: 1. No acute pulmonary process.
[2019-10-01 19:51] LABS: Appearance,Urine Cloudy (Clear); Bacteria,Urine Rare /hpf; Bilirubin,Urine 1+ (Negative); Blood,Urine Negative (Negative); Color,Urine Yellow; Glucose,Urine (UA) Negative (Negative); Hyaline Casts,Urine 15 /lpf (0-2); Ketones,Urine 1+ (Negative); Leukocyte Esterase,Urine Small (Negative); Mucus,Urine Many /hpf; Nitrite,Urine Negative (Negative); Protein,Urine 1+ (Negative); RBC,Urine 4 /hpf (0-5); Specific Gravity,Urine 1.026 (1.001-1.035); Squamous Epithelial Cell,Urine 39 /hpf (0-4); WBC,Urine 8 /hpf (0-5)
[2019-10-01 20:47] VITALS: BP 106/83
[2019-10-01 20:57] LABS: Amphetamine Screen,Urine Not Detected (NotDetected); Barbiturate Screen,Urine Not Detected (NotDetected); Benzodiazepines Screen,Urine Not Detected (NotDetected); Cocaine Screen,Urine Not Detected (NotDetected); Methadone Screen, Urine Not Detected (NotDetected); Opiate Screen,Urine Not Detected (NotDetected); Oxycodone Screen, Urine Not Detected (NotDetected); Phencyclidine Screen,Urine Not Detected (NotDetected); Tricyclic Antidepressant,Urine Not Detected (NotDetected); Urn Cannabinoid Scrn Not Detected (NotDetected)
== END 2019-10-01 21:14 | disposition home or self-care (01) ==
LOC: EC 17:36
DX: R42 Dizziness and giddiness (principal); D72.829 Elevated white blood cell count, unspecified; R11.10 Vomiting, unspecified; G40.909 Epilepsy, unspecified, not intractable, without status epilepticus; F41.9 Anxiety disorder, unspecified; F43.10 Post-traumatic stress disorder, unspecified; F17.200 Nicotine dependence, unspecified, uncomplicated; Z88.0 Allergy status to penicillin; Z88.5 Allergy status to narcotic agent; Z91.011 Allergy to milk products; Z91.018 Allergy to other foods; Z79.899 Other long term (current) drug therapy; Z86.14 Personal history of Methicillin resistant Staphylococcus aureus infection
CPT/HCPCS: 36415; 71046; 80053; 80175; 80306; 81001; 81025; 84484; 85025; 85610; 85730; 93005; 96360; 96361; 99285

== ENCOUNTER → 2020-03-04 | Outpatient (CLI) | payer MEDICARE, OTHER ==
--- NOTE | 2020-03-05 07:54 | US ---
EXAMINATION TYPE: US abdomen limited DATE OF EXAM: 03/04/2020 COMPARISON: NONE CLINICAL HISTORY: K76.89 liver disease, R94.5 Abnormal LFTS. Difficult and limited exam due to overly ing bowel gas EXAM MEASUREMENTS: Liver Length: 12.7 cm Gallbladder Wall: 0.2 cm CBD: 0.4 cm Right Kidney: 9.7 x 3.4 x 4.3 cm Pancreas: Pancreas is largely obscured by bowel gas Liver: Heterogeneous. Hyperechoic area visualized right lobe measuring 2.1 x 1.0 x 1.8 cm, possible hemangioma vs other etiology Gallbladder: wnl Evidence for sonographic Riley's sign: No CBD: wnl Right Kidney: No hydronephrosis or masses seen IMPRESSION: 1. Suspected hepatic hemangioma. Dynamic CT abdomen with contrast could be performed for confirmation . MRI with contrast could be an alternative workup.
== END | disposition home or self-care (01) ==
LOC: RADUSWWP 17:02
PROVIDERS: ATTEND Family Medicine
DX: K76.89 Other specified diseases of liver (principal); R94.5 Abnormal results of liver function studies
CPT/HCPCS: 76705

== ENCOUNTER → 2021-02-09 | Outpatient (CLI) | payer MEDICARE, OTHER ==
--- NOTE | 2021-02-11 11:41 | MM ---
Reason for exam: screening (asymptomatic). Baseline mammogram. History: Patient had first child at age 31. Family history of breast cancer in maternal aunt and breast cancer in paternal aunt. Took hormonal contraceptives. Physical Findings: Nurse did not find any significant physical abnormalities on exam. MG 3D Screening Mammo W/Cad Bilateral CC and MLO view(s) were taken. There are scattered fibroglandular densities. There is no discrete abnormality. Vessel tortuosity posterior medial right CC view on 3D images. ASSESSMENT: Negative, BI-RAD 1 RECOMMENDATION: Routine screening mammogram of both breasts in 1 year.
== END | disposition home or self-care (01) ==
LOC: RADMAMWWP 12:54
PROVIDERS: ATTEND Obstetrics & Gynecology
DX: Z12.31 Encounter for screening mammogram for malignant neoplasm of breast (principal); Z80.3 Family history of malignant neoplasm of breast
CPT/HCPCS: 77063; 77067

== ENCOUNTER 2023-07-14 15:16 | Emergency (ER) | payer MEDICARE, OTHER ==
[2023-07-14] MEDS ORDERED: SODIUM CHLORIDE 0.9% 1,000 ML IV STA (16:22)
--- NOTE | 2023-07-14 16:26 | ED ---
General Adult HPI - General Source: patient Mode of arrival: ambulatory Limitations: no limitations <Hector Banda - Last Filed: 07/14/23 16:26> <Aayush Emanuel - Last Filed: 07/14/23 20:09> - General Stated complaint: NVD Time Seen by Provider: 07/14/23 16:26 - History of Present Illness Initial comments: 47-year-old female presenting to the ED with a chief complaint of nausea and vomiting. Patient does report suspicious food intake. States since has had nausea, vomiting, diarrhea. Also notes associated abdominal pain and headache. No blood in the stool. No hematemesis. No fever or chills. (Hector Banda) - Related Data Home Medications Medication Instructions Recorded Confirmed Sertraline [Zoloft] 100 mg PO DAILY 09/13/16 06/15/17 lamoTRIgine [LaMICtal] 25 mg PO DAILY 03/17/17 06/15/17 Previous Rx's Medication Instructions Recorded Hydrocortisone Cream 1 applic TOPICAL TID #1 tube 03/19/18 [Hydrocortisone 2.5% Cream] diphenhydrAMINE HCL [Benadryl] 25 mg PO BID #8 tab 03/19/18 Allergies Allergy/AdvReac Type Severity Reaction Status Date / Time corn Allergy Unknown Verified 07/14/23 16:23 hydromorphone HCl Allergy Unknown Verified 07/14/23 16:23 [From Dilaudid] milk Allergy Unknown Verified 07/14/23 16:23 Penicillins Allergy Rash/Hives Verified 07/14/23 16:23 wheat Allergy Unknown Verified 07/14/23 16:23 Review of Systems ROS Other: All systems not noted in ROS Statement are negative. <Hector Banda - Last Filed: 07/14/23 16:26> ROS Other: All systems not noted in ROS Statement are negative. <Aayush Emanuel - Last Filed: 07/14/23 20:09> ROS Statement: Those systems with pertinent positive or pertinent negative responses have been documented in the HPI. Past Medical History Past Medical History: Seizure Disorder Additional Past Medical History / Comment(s): Body tremors, hypogylcemia, History of Any Multi-Drug Resistant Organisms: MRSA Date of last positivie culture/infection: 02/24/2014 MDRO Source:: abdomen Past Surgical History: Tonsillectomy Additional Past Surgical History / Comment(s): Foot surgery, carpel tunnel, wound debridement, Past Psychological History: Anxiety, PTSD Smoking Status: Never smoker Past Alcohol Use History: None Reported Past Drug Use History: None Reported <Hector Banda - Last Filed: 07/14/23 16:26> General Exam Limitations: no limitations General appearance: alert, in no apparent distress Neck exam: Present: normal inspection Extremities exam: Present: normal inspection Back exam: Present: normal inspection <Hector Banda - Last Filed: 07/14/23 16:26> General appearance: alert, in no apparent distress Head exam: Present: atraumatic, normocephalic Eye exam: Present: normal appearance, PERRL ENT exam: Present: mucous membranes moist Respiratory exam: Present: normal lung sounds bilaterally. Absent: respiratory distress, wheezes Cardiovascular Exam: Present: regular rate, normal rhythm GI/Abdominal exam: Present: soft. Absent: distended, tenderness, guarding, rebound Neurological exam: Present: alert, oriented X3 Psychiatric exam: Present: normal affect, normal mood Skin exam: Present: warm, dry, intact <Aayush Emanuel - Last Filed: 07/14/23 20:09> Course Vital Signs 07/14/23 16:21 Temperature 98.3 F Pulse Rate 105 H Respiratory 20 Rate Blood Pressure 108/78 O2 Sat by Pulse 98 Oximetry Medical Decision Making <Hector Banda - Last Filed: 07/14/23 16:26> - Lab Data Result diagrams: 07/14/23 18:52 07/14/23 18:52 <Aayush Emanuel - Last Filed: 07/14/23 20:09> - Medical Decision Making Quicknote portion performed. Signed Hector Banda PA-C (Hector Banda) Was pt. sent in by a medical professional or institution ([facility] Manzano, FAMILY LIFE EDUCATOR, urgent care, hospital, or detention...) When possible be specific @ -No Did you speak to anyone other than the patient for history (EMS, parent, family, police, friend...)? What history was obtained from this source @ -No Did you review nursing and triage notes (agree or disagree)? Why? @ -I reviewed and agree with nursing and triage notes Were old charts reviewed (outside hosp., previous admission, EMS record, old EKG , old radiological studies, urgent care reports/EKG's, detention records)? Report findings @ -No old charts were reviewed Differential Diagnosis (chest pain, altered mental status, abdominal pain women, abdominal pain men, vaginal bleeding, weakness, fever, dyspnea, syncope, headache, dizziness, GI bleed, back pain, seizure, CVA, palpatations, mental health, musculoskeletal)? @ -Acute cholecystitis, gastroenteritis, food poisoning, colitis EKG interpreted by me (3pts min.). @ -As above X-rays interpreted by me (1pt min.). @ -None done CT interpreted by me (1pt min.). @ -None done U/S interpreted by me (1pt. min.). @ -None done What testing was considered but not performed or refused? (CT, X-rays, U/S, labs)? Why? @ -None What meds were considered but not given or refused? Why? @ -None Did you discuss the management of the patient with other professionals (professionals i.e. , PA, FAMILY LIFE EDUCATOR, lab, RT, psych nurse, social insurance administrator, school psychology specialist, teacher, correctional probation officer, sample case porter)? Give summary @ -No Was smoking cessation discussed for >3mins.? @ -No Was critical care preformed (if so, how long)? @ -No Were there social determinants of health that impacted care today? How? (Homelessness, low income, unemployed, alcoholism, drug addiction, transportation, low edu. Level, literacy, decrease access to med. care, longterm, rehab)? @ -No Was there de-escalation of care discussed even if they declined (Discuss DNR or withdrawal of care, Hospice)? DNR status @ -No What co-morbidities impacted this encounter? (DM, HTN, Smoking, COPD, CAD, Cancer, CVA, ARF, Chemo, Hep., AIDS, mental health diagnosis, sleep apnea, morbid obesity)? @ -None Was patient admitted / discharged? Hospital course, mention meds given and route, prescriptions, significant lab abnormalities, going to OR and other pertinent info. @ -47-year-old female with acute nausea vomiting and diarrhea, likely food poisoning based on history. Patient does not vomit throughout her stay in the emergency department. No diarrhea. She has no focal tenderness, no rebound or guarding. Given IV fluids and antiemetics in the emergency department with significant improvement in symptoms. She's given return parameters and is stable for discharge at this time. Undiagnosed new problem with uncertain prognosis? @ -No Drug Therapy requiring intensive monitoring for toxicity (Heparin, Nitro, Insulin, Cardizem)? @ -No Were any procedures done? @ -No Diagnosis/symptom? @ -[Nausea vomiting and diarrhea Acute, or Chronic, or Acute on Chronic? @ Acute Uncomplicated (without systemic symptoms) or Complicated (systemic symptoms)? @ -default Side effects of treatment? @ -No Exacerbation, Progression, or Severe Exacerbation? @ -No Poses a threat to life or bodily function? How? (Chest pain, [place], [place], pneumonia, PE, COPD, DKA, ARF, appy, cholecystitis, CVA, Diverticulitis, Homicidal, Suicidal, threat to staff... and all critical care pts) @ -[Low risk at this time (Aayush Emanuel) - Lab Data Lab Results 07/14/23 07/14/23 07/14/23 Range/Units 18:52 18:52 18:52 WBC 14.2 H (3.8-10.6) k/uL RBC 4.55 (3.80-5.40) m/uL Hgb 13.7 (11.4-16.0) gm/dL Hct 42.6 (34.0-46.0) % MCV 93.7 (80.0-100.0) fL MCH 30.0 (25.0-35.0) pg MCHC 32.1 (31.0-37.0) g/dL RDW 14.6 (11.5-15.5) % Plt Count 528 H (150-450) k/uL MPV 6.7 Neutrophils % 93 % Lymphocytes % 3 % Monocytes % 2 % Eosinophils % 1 % Basophils % 0 % Neutrophils # 13.2 H (1.3-7.7) k/uL Lymphocytes # 0.5 L (1.0-4.8) k/uL Monocytes # 0.3 (0-1.0) k/uL Eosinophils # 0.2 (0-0.7) k/uL Basophils # 0.0 (0-0.2) k/uL PT 11.1 (10.0-12.5) sec INR 1.0 (<1.2) APTT 26.3 (22.0-30.0) sec Sodium 138 (137-145) mmol/L Potassium 4.5 (3.5-5.1) mmol/L Chloride 103 (98-107) mmol/L Carbon Dioxide 22 (22-30) mmol/L Anion Gap 13 mmol/L BUN 15 (7-17) mg/dL Creatinine 0.79 (0.52-1.04) mg/dL Est GFR (CKD-EPI)AfAm >90 (>60 ml/min/1.73 sqM) Est GFR (CKD-EPI)NonAf 89 (>60 ml/min/1.73 sqM) Glucose 119 H (74-99) mg/dL Calcium 9.3 (8.4-10.2) mg/dL Total Bilirubin 0.6 (0.2-1.3) mg/dL AST 30 (14-36) U/L ALT 37 H (4-34) U/L Alkaline Phosphatase 105 (38-126) U/L Total Protein 8.6 H (6.3-8.2) g/dL Albumin 4.5 (3.5-5.0) g/dL Amylase 58 (30-110) U/L Lipase 32 (23-300) U/L Disposition <Hector Banda - Last Filed: 07/14/23 16:26> Is patient prescribed a controlled substance at d/c from ED?: No Time of Disposition: 20:09 <Aayush Emanuel - Last Filed: 07/14/23 20:09> Clinical Impression: Nausea vomiting and diarrhea Disposition: HOME SELF-CARE Condition: Fair Instructions (If sedation given, give patient instructions): Acute Diarrhea (ED), Acute Nausea and Vomiting (ED) Referrals: Tarun Garcia MD [Primary Care Provider] - 1-2 days
[2023-07-14 16:40] VITALS: TEMP 98.3
[2023-07-14] MEDS ORDERED: ONDANSETRON 4 MG/2 ML VIAL IVP STA (18:45)
[2023-07-14 19:52] LABS: Basophils % (A) 0 %; Eosinophils # (A) 0.2 k/uL (0-0.7); Eosinophils % (A) 1 %; HCT 42.6 % (34.0-46.0); HGB 13.7 gm/dL (11.4-16.0); Lymphocytes # (A) 0.5 k/uL (1.0-4.8); Lymphocytes % (A) 3 %; MCHC 32.1 g/dL (31.0-37.0); MCV 93.7 fL (80.0-100.0); Mean Platelet Volume 6.7; Monocytes # (A) 0.3 k/uL (0-1.0); Monocytes % (A) 2 %; Neutrophils # (A) 13.2 k/uL (1.3-7.7); Neutrophils % (A) 93 %; Platelet Count 528 k/uL (150-450); RBC 4.55 m/uL (3.80-5.40); RDW 14.6 % (11.5-15.5); WBC 14.2 k/uL (3.8-10.6)
[2023-07-14 20:02] LABS: ALT 37 U/L (4-34); AST 30 U/L (14-36); African American GFR (CKD) >90 (>60 ml/min/1.73 sqM); Albumin 4.5 g/dL (3.5-5.0); Alkaline Phosphatase 105 U/L (38-126); Amylase 58 U/L (30-110); Anion Gap 13 mmol/L; Blood Urea Nitrogen 15 mg/dL (7-17); Calcium 9.3 mg/dL (8.4-10.2); Carbon Dioxide 22 mmol/L (22-30); Chloride 103 mmol/L (98-107); Glucose 119 mg/dL (74-99); Lipase 32 U/L (23-300); Non-African American GFR(CKD) 89 (>60 ml/min/1.73 sqM); Partial Thromboplastin Time 26.3 sec (22.0-30.0); Potassium 4.5 mmol/L (3.5-5.1); Prothrombin Time 11.1 sec (10.0-12.5); Sodium 138 mmol/L (137-145); Total Bilirubin 0.6 mg/dL (0.2-1.3); Total Protein 8.6 g/dL (6.3-8.2)
[2023-07-14 20:23] VITALS: BP 130/74; PULSE 97; RESP 18
== END 2023-07-14 20:23 | disposition home or self-care (01) ==
LOC: EC 15:16
DX: R11.2 Nausea with vomiting, unspecified (principal); R19.7 Diarrhea, unspecified; F41.9 Anxiety disorder, unspecified; Z79.899 Other long term (current) drug therapy; Z91.018 Allergy to other foods; Z91.011 Allergy to milk products; Z88.0 Allergy status to penicillin; Z88.5 Allergy status to narcotic agent
CPT/HCPCS: 36415; 80053; 82150; 83690; 85025; 85610; 85730; 99284; 96374; 96361; J2405

== ENCOUNTER → 2023-08-21 | Outpatient (CLI) | payer MEDICARE, OTHER ==
--- NOTE | 2023-08-21 07:54 | US ---
EXAMINATION TYPE: US abdomen complete DATE OF EXAM: 08/21/2023 COMPARISON: 03/04/2020 CLINICAL INDICATION: Female, 47 years old with history of R10.13 EPIGASTRIC PAIN R11.0 NAUSEA; TECHNIQUE: Multiple sonographic images of the abdomen are obtained. FINDINGS: EXAM MEASUREMENTS: Liver Length: 17.1 cm Gallbladder Wall: 0.2 cm CBD: 0.2 cm Spleen: 7.1 x 2.9 x 3.2 cm Right Kidney: 12.4 x 4.4 x 6.0 cm Left Kidney: 11.0 x 5.2 x 5.7 cm CENTER MACHINE SET UP OPERATOR NOTES: Pancreas: Tail obscured by overlying bowel gas Liver: Echogenic area Lower right lobe redemonstrated = 1.9 x 1.5 x 2.1 cm Gallbladder: wnl Evidence for sonographic Riley's sign: No CBD: wnl Spleen: wnl Right Kidney: wnl Left Kidney: wnl Upper IVC: wnl Abd Aorta: wnl IMPRESSION: 1. Ill-defined hyperechoic area right lobe liver stable from comparison. 2. Hepatomegaly
== END | disposition home or self-care (01) ==
LOC: RADUSWWP 07:08
PROVIDERS: ATTEND Family Medicine
DX: R16.0 Hepatomegaly, not elsewhere classified (principal); R11.0 Nausea
CPT/HCPCS: 76700

== ENCOUNTER → 2024-04-16 | Outpatient (CLI) | payer MEDICARE, OTHER ==
--- NOTE | 2024-04-18 10:05 | MM ---
Reason for Exam: Screening (asymptomatic). Last mammogram was performed 3 year(s) and 2 month(s) ago. Patient History: Menarche at age 11. First Full-Term at age 31. Late child-bearing (after 28). Postmenopausal. Patient has history of breast feeding. Hormonal Contraceptives, ending at age 44. Paternal aunt had breast cancer. Maternal aunt had breast cancer. Risk Values: Azul 5 year model risk: 1.0%. NCI Lifetime model risk: 8.6%. Prior Study Comparison: 02/09/2021 Bilateral Screening Mammogram, [facility]. Tissue Density: The breasts are almost entirely fatty. Findings: Analyzed By CAD. Right breast: There is no suspicious group of microcalcifications or new suspicious mass. Left breast: There is no suspicious group of microcalcifications or new suspicious mass. Overall Assessment: Negative, BI-RAD 1 Management: Screening Mammogram of both breasts in [address] [facility] will attempt to contact patient to return for supplemental views and ultrasound if indicated. Patient should continue monthly self-breast exams. A clinical breast exam by your physician is recommended on an annual basis. This exam should not preclude additional follow-up of suspicious palpable abnormalities. Note on Azul scores and lifetime risk: 1. A Azul score greater than 3% is considered moderate risk. If this is the case, consider specialist referral to assess eligibility for a risk reducing agent. 2. If overall lifetime risk for the development of breast cancer is 20% or higher, the patient may qualify for future screening with alternating mammogram and breast MRI. Electronically signed and approved by: Aayush Holloway DO
== END | disposition home or self-care (01) ==
LOC: RADMAMWWP 14:42
PROVIDERS: ATTEND Family Medicine
DX: Z12.31 Encounter for screening mammogram for malignant neoplasm of breast
CPT/HCPCS: 77063; 77067